=== PATIENT | female | born 1995 | race Caucasian/White ===

== ENCOUNTER 2017-02-15 11:01 | Emergency (ER) | payer SELFPAY ==
[2017-02-15 11:06] VITALS: PULSE 72; BMI 18.3
--- NOTE | 2017-02-15 11:13 | PDOC ---
History of Present Illness - General History Source: Patient Exam Limitations: No Limitations - History of Present Illness Initial Comments: 02/15/17 11:31 The patient is a 21 year old female with a significant past medical history of asthma, presenting to the Emergency Department with right lower quadrant pain since last night. The patient reports that last night she started experiencing abdominal cramping, especially at her right side. She reports that during the night she started bleeding vaginally and describes the blood as bright red and with clots. She admits that her LMP was two weeks ago, and was a normal light period as her periods normally last 2 to 3 days. She reports that as of this morning she has been experiencing a sharp pain to the right lower quadrant, which she states is similar in intensity to when she had appendicitis. She admits taking Midol for the pain, with minimal relief. She also reports feeling chills last night, alternating between hot and cold. The patient states that she has never been . The patient denies nausea, vomiting, and diarrhea. Patient denies fever, or cough. Patient denies dysuria, urinary urgency, or urinary frequency. Patient denies headache, or dizziness. Past Medical Hx: scoliosis Surgical Hx: appendectomy <Gladys Mehta - Last Filed: 02/15/17 11:30> <Dima Hamilton - Last Filed: 02/15/17 16:52> <Evelyn Garcia - Last Filed: 02/15/17 18:37> - General Chief Complaint: Pain Stated Complaint: r/o ectopic ABD PAIN Time Seen by Provider: 02/15/17 11:13 Past History <Gladys Mehta - Last Filed: 02/15/17 11:30> - Past Medical History Asthma: Yes Other medical history: scoliosis - Surgical History Abdominal Surgery: (appendix) Appendectomy: Yes - Immunization History Immunization Up to Date: Yes - Psycho/Social/Smoking Cessation Hx Anxiety: No Suicidal Ideation: No Smoking History: Never smoked Have you smoked in the past 12 months: No Number of Cigarettes Smoked Daily: 0 Cigars Per Day: 0 Information on smoking cessation initiated: No Hx Alcohol Use: No Drug/Substance Use Hx: No Substance Use Type: None <Dima Hamilton - Last Filed: 02/15/17 16:52> <Evelyn Garcia - Last Filed: 02/15/17 18:37> - Past Medical History Allergies/Adverse Reactions: Allergies Allergy/AdvReac Type Severity Reaction Status Date / Time Penicillins Allergy Verified 02/15/17 11:02 Home Medications: Ambulatory Orders Meclizine HCl [Antivert -] 25 mg PO TID 01/30/14 Prochlorperazine Maleate [Compazine -] 10 mg PO TID #10 tablet 01/30/14 Review of Systems - Review of Systems Able to Perform ROS?: Yes Comments:: 02/15/17 11:31 GENERAL/CONSTITUTIONAL: + chills. No fever. No weakness. HEAD, EYES, EARS, NOSE AND THROAT: No change in vision. No ear pain or discharge. No sore throat. CARDIOVASCULAR: No chest pain or shortness of breath. RESPIRATORY: No cough, wheezing, or hemoptysis. GASTROINTESTINAL: + abdominal cramping, + sharp RLQ pain. No nausea, vomiting, diarrhea or constipation. GENITOURINARY: + vaginal bleeding. No dysuria, frequency, or change in urination. MUSCULOSKELETAL: No joint or muscle swelling or pain. No neck or back pain. SKIN: No rash NEUROLOGIC: No headache, vertigo, loss of consciousness, or change in strength/ sensation. ENDOCRINE: No increased thirst. No abnormal weight change. HEMATOLOGIC/LYMPHATIC: No anemia, easy bleeding, or history of blood clots. ALLERGIC/IMMUNOLOGIC: No hives or skin allergy. <Gladys Mehta - Last Filed: 02/15/17 11:30> *Physical Exam - Vital Signs Last Vital Signs Temp Pulse Resp BP Pulse Ox 98.1 F 72 18 109/76 100 02/15/17 11:03 02/15/17 11:03 02/15/17 11:03 02/15/17 11:03 02/15/17 11:03 - Physical Exam Comments: 02/15/17 11:32 GENERAL: Awake, alert, and fully oriented, in no acute distress HEAD: No signs of trauma EYES: PERRLA, EOMI, sclera anicteric, conjunctiva clear ENT: Auricles normal inspection, hearing grossly normal, nares patent, oropharynx clear without exudates. Moist mucosa NECK: Normal ROM, supple, no lymphadenopathy, JVD, or masses LUNGS: Breath sounds equal, clear to auscultation bilaterally. No wheezes, and no crackles HEART: Regular rate and rhythm, normal S1 and S2, no murmurs, rubs or gallops ABDOMEN: Tenderness to palpation at right lower quadrant. No guarding, no rebound. Soft, normoactive bowel sounds. No masses EXTREMITIES: Normal range of motion, no edema. No clubbing or cyanosis. No cords, erythema, or tenderness NEUROLOGICAL: Cranial nerves II through XII grossly intact. Normal speech SKIN: Warm, Dry, normal turgor, no rashes or lesions noted. <Gladys Mehta - Last Filed: 02/15/17 11:30> - Vital Signs Last Vital Signs Temp Pulse Resp BP Pulse Ox 98.1 F 72 18 109/76 100 02/15/17 11:03 02/15/17 11:03 02/15/17 11:03 02/15/17 11:03 02/15/17 11:03 <Dima Hamilton - Last Filed: 02/15/17 16:52> - Vital Signs Last Vital Signs Temp Pulse Resp BP Pulse Ox 98.1 F 72 18 109/76 100 02/15/17 11:03 02/15/17 11:03 02/15/17 11:03 02/15/17 11:03 02/15/17 11:03 <Evelyn Garcia - Last Filed: 02/15/17 18:37> ED Treatment Course - LABORATORY CBC & Chemistry Diagram: 02/15/17 12:12 02/15/17 12:12 <Dima Hamilton - Last Filed: 02/15/17 16:52> - LABORATORY CBC & Chemistry Diagram: 02/15/17 12:12 02/15/17 12:12 - ADDITIONAL ORDERS Additional order review: Laboratory Results 02/15/17 02/15/17 02/15/17 12:13 12:13 12:12 INR 1.16 H Sodium 140 Potassium 3.8 Chloride 104 Carbon Dioxide 28 Anion Gap 8 BUN 11 Creatinine 0.7 D Creat Clearance w eGFR > 60 Random Glucose 99 Calcium 9.4 Total Bilirubin 0.6 D AST 23 D ALT 35 D Alkaline Phosphatase 79 Total Protein 8.1 Albumin 4.5 Serum , Qual Urine Color Urine Appearance Urine pH Ur Specific Buhl Urine Protein Urine Glucose (UA) Urine Ketones Urine Blood Urine Nitrite Urine Bilirubin Urine Urobilinogen Ur Leukocyte Esterase Urine RBC Urine WBC Ur Epithelial Cells Urine Mucus Urine HCG, Qual Blood Type O POSITIVE Antibody Screen Negative 02/15/17 12:12 INR Sodium Potassium Chloride Carbon Dioxide Anion Gap BUN Creatinine Creat Clearance w eGFR Random Glucose Calcium Total Bilirubin AST ALT Alkaline Phosphatase Total Protein Albumin Serum , Qual Negative Urine Color Red Urine Appearance Clear Urine pH 6.5 Ur Specific Buhl 1.020 Urine Protein 2+ H Urine Glucose (UA) Negative Urine Ketones Trace H Urine Blood 3+ H Urine Nitrite Negative Urine Bilirubin Negative Urine Urobilinogen 1.0 e.u/dl Ur Leukocyte Esterase Trace H Urine RBC 5955 Urine WBC 115 Ur Epithelial Cells Rare Urine Mucus Few Urine HCG, Qual Cancelled Blood Type Antibody Screen 02/15/17 12:12 RBC 5.07 D MCV 85.0 MCHC 33.3 RDW 12.8 MPV 9.4 Neutrophils % 79.6 Lymphocytes % 11.3 D Monocytes % 8.0 Eosinophils % 0.8 Basophils % 0.3 <Evelyn Garcia - Last Filed: 02/15/17 18:37> *DC/Admit/Observation/Transfer - Attestations Scribe Attestion: 02/15/17 11:33 Documentation prepared by Gladys Mehta, acting as biomedical field service engineer for Dima Hamilton DO. <Gladys Mehta - Last Filed: 02/15/17 11:30> - Attestations Physician Attestion: 02/15/17 11:13 I, Dr. Dima Hamilton, attest that this document has been prepared under my direction and personally reviewed by me in its entirety. I further attest, that it accurately reflects all work, treatment, procedures and medical decision -making performed by me. <Dima Hamilton - Last Filed: 02/15/17 16:52> <Evelyn Garcia - Last Filed: 02/15/17 18:37> Diagnosis at time of Disposition: Dysfunctional uterine hemorrhage Urinary tract infection Qualifiers: Urinary tract infection type: site unspecified Hematuria presence: with hematuria Qualified Code(s): N39.0 - Urinary tract infection, site not specified - Discharge Dispostion Disposition: HOME Condition at time of disposition: Stable - Referrals Referrals: Abiodun Brown MD [Primary Care Provider] - - Patient Instructions Printed Discharge Instructions: DI for Urinary Tract Infection (UTI), DI for Vaginal Bleeding Additional Instructions: please followup with your manager practice
[2017-02-15 12:17] LABS: BASOPHIL 0.3 % (0-2.0); EOSINOPHIL 0.8 % (0-4.5); MCH 28.3 pg (25.7-33.7); MCHC 33.3 g/dl (32.0-36.0); MEAN PLT VOLUME 9.4 fl (7.5-11.1); NEUTROPHILS 79.6 % (42.8-82.8); PLATELET COUNT 197 K/MM3 (134-434); RDW 12.8 % (11.6-15.6); WHITE BLOOD COUNT 12.1 K/mm3 (4.0-10.0)
[2017-02-15 12:28] LABS: INR 1.16 (0.82-1.09); PROTHROMBIN TIME (PATIENT) 12.8 SEC (9.98-11.88)
[2017-02-15 12:41] LABS: ALBUMIN 4.5 g/dl (3.4-5.0); ALK PHOS 79 U/L (45-117); ANION GAP 8 (8-16); BILIRUBIN,TOTAL 0.6 mg/dL (0.2-1.0); CALCIUM 9.4 mg/dL (8.5-10.1); CO2 28 mmol/L (21-32); CREATININE 0.7 mg/dL (0.55-1.02); GLUCOSE,RANDOM 99 mg/dL (74-106); SGOT/AST 23 U/L (15-37); SGPT/ALT 35 U/L (12-78); TOT PROT 8.1 g/dl (6.4-8.2)
[2017-02-15 12:54] LABS: PH,URINE 6.5 (5.0-8.0); URINE APPEARANCE CLEAR; URINE BILIRUBIN NEGATIVE (NEGATIVE); URINE COLOR RED; URINE GLUCOSE (UA) NEGATIVE (NEGATIVE); URINE KETONE TRACE (NEGATIVE); URINE NITRITE NEGATIVE (NEGATIVE); URINE UROBILINOGEN 1.0 E.U/dl E.U./dl (0.2-1.0)
[2017-02-15 12:57] LABS: URINE BLOOD 3+ (NEGATIVE); URINE LEUK ESTERASE TRACE (NEGATIVE); URINE PROTEIN 2+ (NEGATIVE)
[2017-02-15 12:58] LABS: URINE MUCUS FEW; URINE RBC 5955 /hpf (0-3); URINE WBC 115 /hpf (3-5)
[2017-02-15] MEDS ORDERED: SULFAMETHOXAZOLE/TRIMETHOPRIM 800MG/160MG D.S. TABLET PO ONE ×2 (18:36→18:47)
[2017-02-15] MEDS ORDERED: NITROFURANTOIN MACROCRYSTAL 50 MG CAPSULE (FP) PO SCH (18:45)
[2017-02-15] MEDS ORDERED: SULFAMETHOXAZOLE/TRIMETHOPRIM 800MG/160MG D.S. TABLET ONE (18:46)
[2017-02-15 19:00] VITALS: BP 122/77; TEMP 98.7
== END 2017-02-15 19:02 | disposition home or self-care (01) ==
LOC: JER 11:01
DX: N93.8 Other specified abnormal uterine and vaginal bleeding (principal); N39.0 Urinary tract infection, site not specified; R31.9 Hematuria, unspecified
CPT/HCPCS: 36415; 76830-TC; 80053; 81003; 81015; 84703; 85025; 85610; 86850; 86900; 86901; 99283-25